=== PATIENT | male | born 1950 | race Caucasian/White ===

== ENCOUNTER 2017-08-05 02:46 | Inpatient (IN) | payer OTHER ==
[2017-08-05] VITALS (7 sets, daily range): BP systolic 115–144; BP diastolic 66–76; PULSE 78–118; RESP 17–20; TEMP 78.9–101.4; O2SAT 93–98
[~2017-08-05] VITALS: Ht 180.3 cm; Wt 106.3 kg
[~2017-08-05 02:46] MED LIST: ACET325 PO; AMIO200 PO; DUONI NEB; ECOT81TA2 PO; FLUC100T41 PO; HYDR20VI3 IV PUSH; LANSO30 NG; METF500 PO; METO10 PEG; METO50TA PO; RANI150UDC PO; SIME40S PO; WARF2.5T40 PO
[2017-08-05] MEDS ORDERED: SODIUM CHLOR 0.9% 1000 ML INJ 1,000 ML IV SCH ×2 (03:06→08:15)
[2017-08-05] MEDS ORDERED: ONDANSETRON HCL 4 MG/2 ML VIAL IVP ONE (03:15)
[2017-08-05] MEDS ORDERED: SODIUM CHLORIDE 0.9% FLUSH 10 ML FLUSH IV FLUSH PRN ×2 (03:15→06:45)
[2017-08-05] MEDS ORDERED: HYDROmorphone HCL PF 2 MG/ML VIAL IV PUSH ONE (03:15)
--- NOTE | 2017-08-05 03:43 | PD ---
HPI Chief Complaint: Abdominal Pain Time Seen by Provider: 02:54 Travel History International Travel<30 days: No Contact w/Intl Traveler<30days: No Traveled to known affect area: No History of Present Illness HPI This is a 67-year-old male who presents to the emergency department with abdominal discomfort that's been getting worse throughout the day, constant, severe, described as bandlike in his upper abdomen, associated with multiple episodes of vomiting. He denies any fevers but has had chills. He denies any diarrhea. He's never had pain like this before. He's never had abdominal surgery although he was intubated for a long period of time and had a g-tube in the setting of pneumonia. PFSH Past Medical History Atrial Fibrillation: Yes Heart Rhythm Problems: Yes (A FIB 2010) Cardiac Catheterization: Yes Cardiovascular Problems: Yes (ABNORMAL STRESS TEST) High Cholesterol: No Congestive Heart Failure: No Diabetes: No Diminished Hearing: No GERD: Yes (OCC) Genitourinary: No Musculoskeletal: No Neurologic: No Reproductive: No Respiratory: Yes Pneumonia: Yes Past Surgical History Cardiac Surgery: Yes (CARDIAC CATH, 2010) Thoracic Surgery: Yes (BIOPSY REMOVED NEAR LUNG 1979) Other Surgery: Yes (TRACHEOSTOMY/REVERSED) Social History Alcohol Use: Yes (OCC) Tobacco Use: No Substance Use: No Allergies-Medications (Allergen,Severity, Reaction): Coded Allergies: levofloxacin (Verified Allergy, Mild, Rash, 08/05/17) enoxaparin (Unverified Allergy, Unknown, 08/05/17) Heparin induced thrombocytopenia heparin (porcine) (Unverified Allergy, Unknown, 08/05/17) Heparin induced thrombocytopenia Reported Meds & Prescriptions Reported Meds & Active Scripts Active Review of Systems Except as stated in HPI: all other systems reviewed are Neg Physical Exam Narrative GENERAL: Unwell-appearing SKIN: Focused skin assessment warm and dry. HEAD: Atraumatic. Normocephalic. EYES: Pupils equal and round. No injection or drainage. ENT: Moist mucous membranes NECK: Trachea midline. CARDIOVASCULAR: Regular rate and rhythm. No murmur appreciated. RESPIRATORY: Clear to auscultation. Breath sounds equal bilaterally. GASTROINTESTINAL: Abdomen soft, diffusely tender to palpation with guarding MUSCULOSKELETAL: No obvious deformities. NEUROLOGICAL: Awake and alert. No obvious cranial nerve deficits. Moving all extremities. PSYCHIATRIC: Appropriate mood and affect; insight and judgment normal. Data Data Last Documented VS Vital Signs Date Time Temp Pulse Resp B/P (MAP) Pulse Ox O2 Delivery O2 Flow Rate FiO2 08/05/17 04:39 14 08/05/17 04:32 95 122/70 (87) 95 08/05/17 02:47 98.9 Orders Orders Complete Blood Count With Diff (08/05/17 03:06) Comprehensive Metabolic Panel (08/05/17 03:06) Lipase (08/05/17 03:06) Lactic Acid (08/05/17 03:06) Urinalysis - C+S If Indicated (08/05/17 03:06) Iv Access Insert/Monitor (08/05/17 03:06) Ecg Monitoring (08/05/17 03:06) Oximetry (08/05/17 03:06) Ondansetron Inj (Zofran Inj) (08/05/17 03:15) Sodium Chlor 0.9% 1000 Ml Inj (Ns 1000 M (08/05/17 03:06) Sodium Chloride 0.9% Flush (Ns Flush) (08/05/17 03:15) Hydromorphone Pf Inj (Dilaudid Pf Inj) (08/05/17 03:15) Diphenhydramine Inj (Benadryl Inj) (08/05/17 04:15) Us Abdomen Gallbladder (08/05/17 ) Piperacil-Tazo 3.375 Gm Premix (Zosyn 3. (08/05/17 04:45) Admit Order (Ed Use Only) (08/05/17 06:35) Labs Laboratory Tests Test 08/05/17 04:00 White Blood Count 11.9 TH/MM3 Red Blood Count 5.29 MIL/MM3 Hemoglobin 15.7 GM/DL Hematocrit 46.9 % Mean Corpuscular Volume 88.6 FL Mean Corpuscular Hemoglobin 29.7 PG Mean Corpuscular Hemoglobin Concent 33.5 % Red Cell Distribution Width 12.5 % Platelet Count 190 TH/MM3 Mean Platelet Volume 8.5 FL Neutrophils (%) (Auto) 82.3 % Lymphocytes (%) (Auto) 10.7 % Monocytes (%) (Auto) 5.7 % Eosinophils (%) (Auto) 0.9 % Basophils (%) (Auto) 0.4 % Neutrophils # (Auto) 9.8 TH/MM3 Lymphocytes # (Auto) 1.3 TH/MM3 Monocytes # (Auto) 0.7 TH/MM3 Eosinophils # (Auto) 0.1 TH/MM3 Basophils # (Auto) 0.0 TH/MM3 CBC Comment DIFF FINAL Differential Comment Blood Urea Nitrogen 15 MG/DL Creatinine 1.28 MG/DL Random Glucose 266 MG/DL Total Protein 7.0 GM/DL Albumin 3.7 GM/DL Calcium Level 8.7 MG/DL Alkaline Phosphatase 99 U/L Aspartate Amino Transf (AST/SGOT) 210 U/L Alanine Aminotransferase (ALT/SGPT) 110 U/L Total Bilirubin 2.9 MG/DL Sodium Level 137 MEQ/L Potassium Level 4.1 MEQ/L Chloride Level 101 MEQ/L Carbon Dioxide Level 28.4 MEQ/L Anion Gap 8 MEQ/L Estimat Glomerular Filtration Rate 56 ML/MIN Lactic Acid Level 2.6 mmol/L Lipase 66988 U/L [facility] Medical Decision Making Medical Screen Exam Complete: Yes Emergency Medical Condition: Yes Interpretation(s) Afebrile, no tachycardia, mild hypertension Mild leukocytosis Total bilirubin is 2.9 Transaminitis Lactic acid is 2.[address] [place] [address] Last 24 hours Impressions Gall Bladder Ultrasound 08/05/17 0000 Signed Impressions: Service Date/Time: Saturday, August 05, 2017 05:08 - CONCLUSION: The liver is slightly echogenic which maybe due to fatty infiltration and or hepatocellular dysfunction. Questionable gallstones not identified on the prior exam could be artifactual. Wil Guillory MD Differential Diagnosis Cholecystitis, cholelithiasis, choledocholithiasis, pancreatitis, gastritis, perforated ulcer Narrative Course This is a 67-year-old male who presents to the emergency department with abdominal discomfort and vomiting. He was placed on a monitor and an IV was established. Patient was given pain control, IV fluids and antiemetics. Labs demonstrate a mild leukocytosis, elevated total bilirubin and transaminitis as well as a lipase of 26,000 consistent with acute pancreatitis. I suspect he has choledocholithiasis given his total bilirubin elevation. He was given a dose of Zosyn empirically for concern for possible early cholangitis. Patient will be admitted for IV hydration and GI consultation. Physician Communication Physician Communication Discussed with Dr. Motley Diagnosis Primary Impression: Acute pancreatitis Qualified Codes: K85.10 - Biliary acute pancreatitis without necrosis or infection Admitting Information Admitting Physician Requests: it Zoey Rascon MD Aug 05, 2017 03:43
[2017-08-05 04:13] LABS: AUTOMATED NEUTROPHIL # 9.8 TH/MM3 (1.8-7.7); BASOPHIL % 0.4 % (0.0-2.0); EOSINOPHIL # 0.1 TH/MM3 (0-0.4); EOSINOPHIL % 0.9 % (0.0-4.0); HEMATOCRIT 46.9 % (39.0-51.0); HEMOGLOBIN 15.7 GM/DL (13.0-17.0); LYMPH % 10.7 % (9.0-44.0); LYMPHOCYTE # 1.3 TH/MM3 (1.0-4.8); MEAN CELL VOLUME 88.6 FL (80.0-100.0); MEAN CORPUSCULAR HEMOGLOBIN 29.7 PG (27.0-34.0); MEAN CORPUSCULAR HGB CONC 33.5 % (32.0-36.0); MEAN PLATELET VOLUME 8.5 FL (7.0-11.0); MONO % 5.7 % (0.0-8.0); MONOCYTE # 0.7 TH/MM3 (0-0.9); NEUT % 82.3 % (16.0-70.0); PLATELET COUNT 190 TH/MM3 (150-450); RED BLOOD COUNT 5.29 MIL/MM3 (4.50-5.90); RED CELL DISTRIBUTION WIDTH 12.5 % (11.6-17.2); WHITE BLOOD COUNT 11.9 TH/MM3 (4.0-11.0)
[2017-08-05] MEDS ORDERED: diphenhydrAMINE HCL 50 MG/ML VIAL IV PUSH ONE (04:15)
[2017-08-05 04:42] LABS: ALBUMIN 3.7 GM/DL (3.4-5.0); ALKALINE PHOSPHATASE 99 U/L (45-117); ALT (GPT) 110 U/L (12-78); AST (GOT) 210 U/L (15-37); BICARBONATE 28.4 MEQ/L (21.0-32.0); BLOOD UREA NITROGEN 15 MG/DL (7-18); CALCIUM 8.7 MG/DL (8.5-10.1); CHLORIDE 101 MEQ/L (98-107); CREATININE 1.28 MG/DL (0.60-1.30); GLOMERULAR FILTRATION RATE 56 ML/MIN (>89); GLUCOSE,RANDOM 266 MG/DL (74-106); SODIUM (NA) 137 MEQ/L (136-145); TOTAL BILIRUBIN ADULT 2.9 MG/DL (0.2-1.0)
[2017-08-05] MEDS ORDERED: PIPERACIL-TAZO 3.375 GM PREMIX 50 ML IV ONE (04:45)
[2017-08-05 05:21] LABS: LIPASE 26244 U/L (73-393)
--- NOTE | 2017-08-05 06:19 | RADRPT ---
EXAM DATE/TIME: 08/05/2017 05:08 [place] COMPARISON: US ABDOMEN - COMPLETE, October 24, 2015, 8:42. INDICATIONS : Right upper quadrant pain. MEDICAL HISTORY : GERD. Sepsis. Diabetes. Cardiac disease. Afib. Dyspnea. Acute respiratory failure. SURGICAL HISTORY : Cardiac catheterization. Vent. Biopsy near lung. Tracheostomy. PEG tube placement. ENCOUNTER: Subsequent ACUITY: 1 day PAIN SCORE: 3/10 LOCATION: Right upper quadrant MEASUREMENTS: LIVER: 17.5 cm length COMMON DUCT: 7 mm RIGHT KIDNEY: 11.8 x 5.7 x 6.1 cm FINDINGS: The liver is slightly echogenic which maybe due to fatty infiltration and or hepatocellular dysfuncti on. Possible echogenic areas are present in the gallbladder, however questionably artifactually creat ed related bowel. CONCLUSION: The liver is slightly echogenic which maybe due to fatty infiltration and or hepatoce llular dysfunction. Questionable gallstones not identified on the prior exam could be artifactual. Wil Guillory MD on August 05, 2017 at 6:16 Board Certified Radiologist. This report was verified electronically.
[2017-08-05] MEDS ORDERED: LACTULOSE SYRUP 20 GM/30 ML CUP PO PRN (06:45)
[2017-08-05] MEDS ORDERED: HYDROmorphone HCL PF 2 MG/ML VIAL IV PUSH PRN ×3 (06:45→08:30)
[2017-08-05] MEDS ORDERED: NALOXONE HCL 0.4 MG/ML AMP IV PUSH PRN (06:45)
[2017-08-05] MEDS ORDERED: MAGNESIUM HYDROXIDE SUSP 30 ML CUP PO PRN (06:45)
[2017-08-05] MEDS ORDERED: BISACODYL 10 MG SUPP RECTAL PRN (06:45)
[2017-08-05] MEDS ORDERED: SENNOSIDES 8.6 MG TAB PO PRN (06:45)
[2017-08-05] MEDS: SODIUM CHLOR 0.9% 1000 ML INJ 1,000 ML IV SCH ×2 (06:49→09:32)
[2017-08-05] MEDS ORDERED: METO25TA3 PO (06:56)
[2017-08-05] MEDS ORDERED: XARE10TA PO (06:56)
[2017-08-05] MEDS ORDERED: HYDROmorphone HCL PF 4 MG/ML VIAL IV PUSH PRN (08:15)
[2017-08-05 08:28] LABS: PROTHROMBIN TIME - PATIENT 10.6 SEC (9.8-11.6)
[2017-08-05] MEDS: SODIUM CHLORIDE 0.9% FLUSH 10 ML FLUSH IV FLUSH SCH ×2 (09:00→20:26)
[2017-08-05] MEDS: DOCUSATE SODIUM 50 MG/SENNA 8.6 MG TAB PO SCH ×2 (09:31→20:26)
[2017-08-05] MEDS: METOPROLOL TARTRATE 25 MG TAB PO SCH ×2 (09:31→20:25)
[2017-08-05] MEDS: FAMOTIDINE 20 MG/2 ML VIAL IV PUSH SCH ×2 (09:32→20:25)
--- NOTE | 2017-08-05 09:33 | HHI.HP ---
HPI Service [facility] Primary Care Physician Tone Felder M.D. Admission Diagnosis acute pancreatitis Diagnoses: Chief Complaint: Abdominal pain Travel History International Travel<30 Days: No Contact w/Intl Traveler <30 Da: No Traveled to Known Affected Are: No History of Present Illness This is a 67-year-old male with a history of atrial fibrillation on Xarelto and GERD. He presents to the emergency department complaining of acute onset of moderate to severe constant upper abdominal discomfort like a bad cramp for 24 hours associated with nausea, vomiting and chills. No fever, UTI symptoms, constipation and diarrhea. He occasionally drinks alcohol but had some alcoholic drinks 24 hours prior to onset of symptoms. Lipase of 26,000, total bilirubin of 2.9, AST 2010 and ALT 110. Gallbladder sonogram with questionable gallstones. At this time, he does not have any complaints he is requesting water. All other systems reviewed negative Review of Systems Except as stated in HPI: all other systems reviewed are Neg Past Family Social History Past Medical History As previously mentioned Past Surgical History Negative cardiac catheterization, lung biopsy, tracheostomy with subsequent removal Reported Medications Metoprolol Tartrate 25 Mg Tab 25 Mg PO BID Xarelto (Rivaroxaban) 10 Mg Tab 10 Mg PO DAILY (ran out for the past 5 days) Third medication he cannot recall Allergies: Coded Allergies: levofloxacin (Verified Allergy, Mild, Rash, 08/05/17) enoxaparin (Unverified Allergy, Unknown, 08/05/17) Heparin induced thrombocytopenia heparin (porcine) (Unverified Allergy, Unknown, 08/05/17) Heparin induced thrombocytopenia Family History No history of pancreatic cancer Social History Occasional alcohol use but does not smoke or use illicit drugs Physical Exam Vital Signs Vital Signs Date Time Temp Pulse Resp B/P (MAP) Pulse Ox O2 Delivery O2 Flow Rate FiO2 08/05/17 08:02 08/05/17 07:15 96 Room Air 08/05/17 04:39 14 08/05/17 04:32 95 18 122/70 (87) 95 08/05/17 02:47 98.9 78 18 144/66 (92) 98 Physical Exam GENERAL: This is a well-nourished, well-developed patient, in no apparent distress. SKIN: No rashes, ecchymoses or lesions. Cool and dry. HEAD: Atraumatic. Normocephalic. No temporal or scalp tenderness. EYES: Pupils equal round and reactive. Extraocular motions intact. No injection or drainage. ENT: Nose without bleeding, purulent drainage or septal hematoma. Throat without erythema, tonsillar hypertrophy or exudate. Uvula midline. Airway patent. NECK: Trachea midline. No JVD or lymphadenopathy. Supple, nontender, no meningeal signs. CARDIOVASCULAR: Irregularly irregular without murmurs, gallops, or rubs. RESPIRATORY: Clear to auscultation. Breath sounds equal bilaterally. No wheezes , rales, or rhonchi. GASTROINTESTINAL: Abdomen soft, tender upper abdominal areas, nondistended. No guarding. MUSCULOSKELETAL: Extremities without clubbing, cyanosis, or edema. No joint tenderness, effusion, or edema noted. No calf tenderness. Negative Homans sign bilaterally. NEUROLOGICAL: Awake and alert. Cranial nerves II through XII intact. Motor and sensory grossly within normal limits. Five out of 5 muscle strength in all muscle groups. Normal speech. Laboratory Laboratory Tests Test 08/05/17 04:00 08/05/17 08:00 White Blood Count 11.9 Red Blood Count 5.29 Hemoglobin 15.7 Hematocrit 46.9 Mean Corpuscular Volume 88.6 Mean Corpuscular Hemoglobin 29.7 Mean Corpuscular Hemoglobin Concent 33.5 Red Cell Distribution Width 12.5 Platelet Count 190 Mean Platelet Volume 8.5 Neutrophils (%) (Auto) 82.3 Lymphocytes (%) (Auto) 10.7 Monocytes (%) (Auto) 5.7 Eosinophils (%) (Auto) 0.9 Basophils (%) (Auto) 0.4 Neutrophils # (Auto) 9.8 Lymphocytes # (Auto) 1.3 Monocytes # (Auto) 0.7 Eosinophils # (Auto) 0.1 Basophils # (Auto) 0.0 CBC Comment DIFF FINAL Differential Comment Blood Urea Nitrogen 15 Creatinine 1.28 Random Glucose 266 Total Protein 7.0 Albumin 3.7 Calcium Level 8.7 Alkaline Phosphatase 99 Aspartate Amino Transf (AST/SGOT) 210 Alanine Aminotransferase (ALT/SGPT) 110 Total Bilirubin 2.9 Sodium Level 137 Potassium Level 4.1 Chloride Level 101 Carbon Dioxide Level 28.4 Anion Gap 8 Estimat Glomerular Filtration Rate 56 Lactic Acid Level 2.6 Lipase 97587 Prothrombin Time 10.6 Prothromb Time International Ratio 1.0 Activated Partial Thromboplast Time 22.8 Result Diagram: 08/05/170 08/05/17 0400 Imaging Last Impressions Gall Bladder Ultrasound 08/05/17 0000 Signed Impressions: Service Date/Time: Saturday, August 05, 2017 05:08 - CONCLUSION: The liver is slightly echogenic which maybe due to fatty infiltration and or hepatocellular dysfunction. Questionable gallstones not identified on the prior exam could be artifactual. MD Carlota Zee VTE Risk Assessment Caprini VTE Risk Assessment: Mod/High Risk (score >= 2) Caprini Risk Assessment Model Point Value = 1 Point Value = 2 Point Value = 3 Point Value = 5 Age 41-60 Minor surgery BMI > 25 kg/m2 Swollen legs Varicose veins or History of unexplained or recurrent spontaneous Oral contraceptives or hormone replacement Sepsis (< 1 month) Serious lung disease, including pneumonia (< 1 month) Abnormal pulmonary function Acute myocardial infarction Congestive heart failure (< 1 month) History of inflammatory bowel disease Medical patient at bed rest Age 61-74 Arthroscopic surgery Major open surgery (> 45 min) Laparoscopic surgery (> 45 min) Malignancy Confined to bed (> 72 hours) Immobilizing plaster cast Central venous access Age >= 75 History of VTE Family history of VTE Factor V Leiden Prothrombin [id number] Lupus anticoagulant Anticardiolipin antibodies Elevated serum homocysteine Heparin-induced thrombocytopenia Other congenital or acquired thrombophilia Stroke (< 1 month) Elective arthroplasty Hip, pelvis, or leg fracture Acute spinal cord injury (< 1 month) Prophylaxis Regimen Total Risk Factor Score Risk Level Prophylaxis Regimen 0-1 Low Early ambulation 2 Moderate Order ONE of the following: *Sequential Compression Device (SCD) *Heparin 5000 units SQ BID 3-4 Higher Order ONE of the following medications: *Heparin 5000 units SQ TID *Enoxaparin/Lovenox 40 mg SQ daily (WT < 150 kg, CrCl > 30 mL/min) *Enoxaparin/Lovenox 30 mg SQ daily (WT < 150 kg, CrCl > 10-29 mL/min) *Enoxaparin/Lovenox 30 mg SQ BID (WT < 150 kg, CrCl > 30 mL/min) AND/OR *Sequential Compression Device (SCD) 5 or more Highest Order ONE of the following medications: *Heparin 5000 units SQ TID (Preferred with Epidurals) *Enoxaparin/Lovenox 40 mg SQ daily (WT < 150 kg, CrCl > 30 mL/min) *Enoxaparin/Lovenox 30 mg SQ daily (WT < 150 kg, CrCl > 10-29 mL/min) *Enoxaparin/Lovenox 30 mg SQ BID (WT < 150 kg, CrCl > 30 mL/min) AND *Sequential Compression Device (SCD) Assessment and Plan Problem List: (1) Acute pancreatitis ICD Code: K85.90 - Acute pancreatitis without necrosis or infection, unspecified Status: Acute Assessment and Plan This is a 67-year-old male who presents to the emergency department complaining of acute onset of moderate to severe constant upper abdominal discomfort like a bad cramp for 24 hours associated with nausea, vomiting and chills. No fever, UTI symptoms, constipation and diarrhea. He occasionally drinks alcohol but had some alcoholic drinks 24 hours prior to onset of symptoms. Lipase of 26,000 , total bilirubin of 2.9, AST 2010 and ALT 110. Gallbladder sonogram with questionable gallstones. Acute pancreatitis likely alcoholic suspect choledocholithiasis. Keep nothing by mouth with ice chips. Pain management with oxycodone and IV Dilaudid counseled regarding narcotics. He'll likely need MRCP but will defer to GI Abnormal liver function tests with echogenic liver which may be due to fatty infiltration and hepatocellular disease. Avoid nephrotoxins. Check hepatitis profile. Monitor. Leukocytosis with elevated lactic acid likely secondary to pancreatitis. Patient already on intravenous Zosyn. Check urinalysis. Monitor Chronic medical conditions of atrial fibrillation on Xarelto and GERD. Continue outpatient medications as appropriate DVT prophylaxis with SCD and Xarelto if okay with GI Discussed Condition With Patient and nursing staff Problem Qualifiers (1) Acute pancreatitis: Qualified Codes: K85.10 - Biliary acute pancreatitis without necrosis or infection Carlos Herrera MD Aug 05, 2017 09:33
[2017-08-05] MEDS ORDERED: PIPERACIL-TAZO 3.375 GM PREMIX 50 ML IV SCH (12:00)
[2017-08-05] MEDS: DEXTROSE 5%-LACTATED RING INJ 1,000 ML IV SCH ×2 (12:58→20:23)
--- NOTE | 2017-08-05 13:26 | MB ---
cc: ELIZABETH DONATO M.D., HUMAYUN A. M.D. PECK, BENJAMIN D. DATE OF CONSULTATION: 08/05/[address] Elizabeth Donato. HISTORY OF PRESENT ILLNESS The patient is a 67-year-old male I was asked to see for further evaluation and management of pancreatitis. After eating lunch yesterday he developed some mild epigastric discomfort and after dinner the discomfort increased in severity with radiation to the back with associated nausea and vomiting of food and liquid but no blood. No fever or chills. No bowel irregularities. No episodes similar to this. MEDICAL HISTORY Atrial fibrillation, hypertension. PAST SURGICAL HISTORY Tracheostomy and gastrostomy tube October of 2015, at which time he was here in the hospital for 3 months with a severe pneumonia. MEDICATIONS ON ADMISSION 1. Metoprolol 25 mg b.i.d. 2. Xarelto 10 mg daily, though he has not been taking it for the past 5 days as he has run out. 3. He takes Gaviscon occasionally for heartburn symptoms with fair control of symptoms. FAMILY HISTORY Heart disease. No pancreatic disease or GI diseases in the family. SOCIAL HISTORY Tobacco use: None. Alcohol use: About once per week or every other week. REVIEW OF SYSTEMS No recent headaches. No history of seizures or strokes. No vision difficulties. No dysphagia or odynophagia. Mild heartburn symptoms treated with Gaviscon (we discussed the option of using Zantac or Pepcid for prolonged symptom relief). No recent chest pains or breathing difficulties. No urinary symptoms. No rashes or joint pains. No unexplained weight loss. PHYSICAL EXAMINATION VITAL SIGNS: His weight is 100 kilograms. His temperature is 98.3, pulse 109, respiratory rate 18, blood pressure 119/73. Oxygen saturation 94% on room air. GENERAL: He is alert. He is oriented x3. HEENT: He is anicteric. Extraocular motions are intact. I appreciate no submandibular, cervical, supraclavicular, axillary or epitrochlear adenopathy. LUNGS: Clear to auscultation. HEART: Irregular rhythm. No gross murmur or gallop. ABDOMEN: Good bowel sounds with no appreciable bruit. The abdomen is soft and there is mild to moderate epigastric to right upper quadrant tenderness. No masses or hepatosplenomegaly noted. No pedal edema, Dupuytren's contractures or palmar erythema. LABORATORY DATA ON ADMISSION This morning at 4 o'clock white count 11.9, hemoglobin 15.7, platelets 190, INR 1.0. Sodium 137, potassium 4.1, BUN 15, creatinine 1.28, glucose 266, bilirubin 2.9, AST 210, ALT 110, alkaline phosphatase 99, lipase 26,244, albumin 3.7. IMAGING STUDIES Ultrasound performed this morning (I reviewed this with the radiologist) reveals probable sludge and/or small stones in the gallbladder. The bile duct measures 7 mm which is the same diameter as noted on the CT scan of the abdomen from October of 2015. Even in October of [address] scan suggested sludge in the gallbladder. There was a slightly echogenic appearance to the liver suggesting fatty liver or medical liver disease. IMPRESSION 1. Acute pancreatitis. My suspicion is this is related to gallstone pancreatitis. We expect to see a significant drop in the lipase with the next reading. He has been receiving Dilaudid. His last dose was given over 5 hours ago and his symptoms are not as bad now as they were yesterday, suggesting he is already improving. He had been receiving normal saline at 200 cc/hour. I suggest changing this to lactated Ringer's as studies have shown this is a more appropriate fluid for pancreatitis. Also, we will change Dilaudid to Demerol as Demerol is the only narcotic that does not cause spasm of the sphincter of Oddi and is the recommended narcotic for patients with pancreatitis. Piperacillin can be stopped as there is no evidence of infection. We discussed the need for cholecystectomy once this process resolves. This can be coordinated as an outpatient, when convenient. The patient's last colonoscopy was performed about a year ago. I will follow along closely. MD JAQUELIN Orr/KELLY /12:36 PM /12:49 PM
[2017-08-05] MEDS: RIVAROXABAN 10 MG TAB PO SCH (14:00)
[2017-08-05] MEDS: MEPERIDINE HCL 50 MG/ML VIAL IV PUSH PRN ×2 (15:05→18:59)
[2017-08-05] MEDS: ACETAMINOPHEN 325 MG TAB PO PRN (20:22)
[2017-08-06] VITALS: BP 102/61; PULSE 86; RESP 20; TEMP 99; O2SAT 90
[2017-08-06] MEDS: DEXTROSE 5%-LACTATED RING INJ 1,000 ML IV SCH ×4 (03:14→22:57)
[2017-08-06] MEDS: ONDANSETRON HCL 4 MG/2 ML VIAL IVP PRN ×3 (03:21→20:04)
[2017-08-06] MEDS: MEPERIDINE HCL 50 MG/ML VIAL IV PUSH PRN ×3 (03:21→20:22)
[2017-08-06 05:06] VITALS: O2SAT 96
[2017-08-06 05:14] LABS: BASOPHIL % 0.5 % (0.0-2.0); EOSINOPHIL # 0.1 TH/MM3 (0-0.4); EOSINOPHIL % 0.7 % (0.0-4.0); HEMATOCRIT 41.9 % (39.0-51.0); HEMOGLOBIN 14.1 GM/DL (13.0-17.0); LYMPH % 4.7 % (9.0-44.0); LYMPHOCYTE # 0.4 TH/MM3 (1.0-4.8); MEAN CELL VOLUME 89.8 FL (80.0-100.0); MEAN CORPUSCULAR HEMOGLOBIN 30.2 PG (27.0-34.0); MEAN CORPUSCULAR HGB CONC 33.7 % (32.0-36.0); MEAN PLATELET VOLUME 8.4 FL (7.0-11.0); MONO % 6.3 % (0.0-8.0); MONOCYTE # 0.5 TH/MM3 (0-0.9); NEUT % 87.8 % (16.0-70.0); PLATELET COUNT 167 TH/MM3 (150-450); RED BLOOD COUNT 4.67 MIL/MM3 (4.50-5.90); RED CELL DISTRIBUTION WIDTH 12.9 % (11.6-17.2); WHITE BLOOD COUNT 7.9 TH/MM3 (4.0-11.0)
[2017-08-06 05:23] LABS: AST (GOT) 91 U/L (15-37); BICARBONATE 26.4 MEQ/L (21.0-32.0); BLOOD UREA NITROGEN 11 MG/DL (7-18); CALCIUM 8.1 MG/DL (8.5-10.1); CHLORIDE 104 MEQ/L (98-107); CREATININE 1.25 MG/DL (0.60-1.30); GLUCOSE,RANDOM 291 MG/DL (74-106); SODIUM (NA) 138 MEQ/L (136-145)
[2017-08-06 05:27] LABS: ALKALINE PHOSPHATASE 74 U/L (45-117); ALT (GPT) 137 U/L (12-78); LIPASE 5458 U/L (73-393); TOTAL PROTEIN 6.7 GM/DL (6.4-8.2)
[2017-08-06 08:00] VITALS: BP 120/66; PULSE 82; RESP 17; TEMP 96.8; O2SAT 94
[2017-08-06] MEDS: SODIUM CHLORIDE 0.9% FLUSH 10 ML FLUSH IV FLUSH SCH ×2 (08:53→20:25)
[2017-08-06] MEDS: DOCUSATE SODIUM 50 MG/SENNA 8.6 MG TAB PO SCH ×2 (09:00→20:25)
[2017-08-06] MEDS: RIVAROXABAN 10 MG TAB PO SCH (09:00)
[2017-08-06] MEDS: FAMOTIDINE 20 MG/2 ML VIAL IV PUSH SCH ×2 (09:00→20:21)
[2017-08-06] MEDS: METOPROLOL TARTRATE 25 MG TAB PO SCH ×2 (09:00→20:21)
--- NOTE | 2017-08-06 10:39 | HHI.GIFU ---
GI Follow-up Note Consult Follow-up Subjective: Patient laying in bed comfortably, no new complaints. Less pain, he's requiring demerol less frequently. He had a good bowel movement and has been passing ani-colored urine. Objective: PHYSICAL EXAMINATION: Vitals signs stable No fever HEENT:EOMI ABDOMEN: Soft, nondistended, good bowel sounds; less tender, but the tenderness is more diffuse. SUPERVISOR RIVETING: alert and oriented times three. Available Data (labs, X- Rays, Procedues) : Labs reviewed; improving lipase and liver enzymes. ASSESSMENT/PLAN: Acute (likely gallstone) pancreatitis; improving. We'll advance to a clear liquid diet. He should increase ambulation. Will follow closely. It was a pleasure seeing Loy Felder Jr. Entered by: Zay Collazo MD Aug 06, 2017 10:38
[2017-08-06 10:54] LABS: HEPATITIS A AB IGM NEGATIVE (NEGATIVE); HEPATITIS B CORE AB IGM NEGATIVE (NEGATIVE); HEPATITIS B SURFACE ANTIGEN NEGATIVE (NEGATIVE); HEPATITIS C AB IgG NEGATIVE (NEGATIVE)
[2017-08-06 12:00] VITALS: BP 123/68; PULSE 84; RESP 17; TEMP 98.2; O2SAT 94
[2017-08-06 16:00] VITALS: BP 127/73; PULSE 88; RESP 18; TEMP 96.5; O2SAT 95
[2017-08-06 20:00] VITALS: PULSE 83; RESP 20; TEMP 100.6; O2SAT 90
[2017-08-06] MEDS: ACETAMINOPHEN 325 MG TAB PO PRN (20:21)
--- NOTE | 2017-08-06 22:40 | HHI.PR ---
Subjective Remarks Patient seen today around 11:30 AM. He reports that abdominal pain is slightly better today. Nausea slightly better today. Objective Vital Signs Date Time Temp Pulse Resp B/P (MAP) Pulse Ox O2 Delivery O2 Flow Rate FiO2 08/06/17 20:00 100.6 83 20 90 08/06/17 16:00 96.5 88 18 127/73 (91) 95 08/06/17 12:00 98.2 84 17 123/68 (86) 94 08/06/17 08:00 96.8 82 17 120/66 (84) 94 08/06/17 05:06 96 08/06/17 00:00 99.0 86 20 102/61 (75) 90 I/O 08/05/17 08/05/17 08/05/17 08/06/17 08/06/17 08/06/17 07:00 15:00 23:00 07:00 15:00 23:00 Intake Total 1050 ml 1000 ml 1000 ml 450 ml 1240 ml Output Total 700 ml 550 ml 650 ml Balance 1050 ml 300 ml 450 ml 450 ml 590 ml Intake Oral 0 ml 0 ml 240 ml IV Total 1050 ml 1000 ml 1000 ml 450 ml 1000 ml Output Urine Total 700 ml 550 ml 650 ml # Bowel Movements 0 1 0 Result Diagram: 08/06/1742108/06/17421 Objective Remarks GENERAL: PATIENT SITTING UP IN BED. aPPEARS COMFORTABLE. SKIN: Warm and dry. HEAD: Normocephalic. EYES: No scleral icterus. No injection or drainage. NECK: Supple, trachea midline. No JVD. CARDIOVASCULAR: Regular rate and rhythm without murmurs, gallops, or rubs. RESPIRATORY: Breath sounds equal bilaterally. No accessory muscle use. GASTROINTESTINAL: Abdomen soft, mild tenderness in the epigastrium. No rebound or guarding. MUSCULOSKELETAL: No cyanosis, or edema. BACK: Nontender without obvious deformity. No CVA tenderness. A/P Assessment and Plan This is a 67-year-old male who presents to the emergency department complaining of acute onset of moderate to severe constant upper abdominal discomfort like a bad cramp for 24 hours associated with nausea, vomiting and chills. No fever, UTI symptoms, constipation and diarrhea. He occasionally drinks alcohol but had some alcoholic drinks 24 hours prior to onset of symptoms. Lipase of 26,000 , total bilirubin of 2.9, AST 2010 and ALT 110. Gallbladder sonogram with questionable gallstones. //Acute pancreatitis likely alcoholic suspect choledocholithiasis. Keep nothing by mouth with ice chips. Pain management with oxycodone and IV Dilaudid counseled regarding narcotics. He'll likely need MRCP but will defer to GI -Appreciate GI assistance. Continue IV fluids. //Hyperglycemia. -Possibly secondary to glucose and IV fluids. We'll start insulin sliding scale. Check UA for ketones. A1C. //Abnormal liver function tests with echogenic liver which may be due to fatty infiltration and hepatocellular disease. Avoid nephrotoxins. Check hepatitis profile. Monitor. -LFTs relatively stable. Profile pending urine //Leukocytosis with elevated lactic acid likely secondary to pancreatitis. Patient already on intravenous Zosyn. Check urinalysis. Monitor //Chronic medical conditions of atrial fibrillation on Xarelto and GERD. Continue outpatient medications as appropriate DVT prophylaxis with SCD and Xarelto if okay with GI Discharge Planning CONTINUE TREATMENT FOR ACUTE PANCREATITIS. Luigi Schuster MD Aug 06, 2017 22:40
[2017-08-06] MEDS ORDERED: THIAMINE HCL 100 MG TAB PO ONE (22:45)
[2017-08-07] VITALS (9 sets, daily range): BP systolic 121–131; BP diastolic 57–79; PULSE 75–118; RESP 18–20; TEMP 98.7–100.3; O2SAT 90–96
[2017-08-07] MEDS ORDERED: guaiFENesin/DEXTROMETHORPHAN 200 MG/20 MG/10 ML CUP PO PRN (04:00)
[2017-08-07 04:03] LABS: BILIRUBIN, URINE NEG (NEG); BLOOD, URINE NEG (NEG); GLUCOSE,URINE 1000 mg/dL (NEG); KETONE, URINE NEG (NEG); NITRITE,URINE NEG (NEG); PH, URINE 6.5 (5.0-8.5); SQUAMOUS EPITHELIAL CELL URINE <1 /hpf (0-5); URINE COLOR YELLOW (YELLW/STRAW); URINE LEUKOCYTE ESTERASE NEG (NEG)
[2017-08-07] MEDS: ONDANSETRON HCL 4 MG/2 ML VIAL IVP PRN ×3 (04:09→21:37)
--- NOTE | 2017-08-07 04:17 | RADRPT ---
EXAM DATE/TIME: 08/07/2017 04:07 [place] COMPARISON: CHEST SINGLE AP, October 29, 2015, 3:15. INDICATIONS : Short of breath. MEDICAL HISTORY : None. SURGICAL HISTORY : None. ENCOUNTER: Initial ACUITY: 1 day PAIN SCORE: 0/10 LOCATION: Bilateral chest FINDINGS: There is mild perivascular haziness probably pulmonary edema. Focal consolidation is not seen. Heart and mediastinum are unremarkable for technique. CONCLUSION: Possible mild pulmonary edema. Wil Guillory MD on August 07, 2017 at 4:14 Board Certified Radiologist. This report was verified electronically.
[2017-08-07] MEDS: MEPERIDINE HCL 50 MG/ML VIAL IV PUSH PRN ×3 (04:32→21:58)
[2017-08-07] MEDS: DEXTROSE 5%-LACTATED RING INJ 1,000 ML IV SCH (04:33)
[2017-08-07] MEDS ORDERED: FUROSEMIDE 40 MG/4 ML VIAL IV PUSH ONE (05:15)
[2017-08-07] MEDS: INSULIN ASPART SUPPLEMENTAL SCALE SQ SCH ×4 (08:00→20:35)
--- NOTE | 2017-08-07 08:17 | HHI.GIFU ---
GI Follow-up Note Consult Follow-up Subjective: Patient laying in bed comfortably, pain better. no fever or chills. Has sob, coughing spell. received Lasix with good urine output. Objective: PHYSICAL EXAMINATION: Vitals signs stable No fever HEENT: Pupils round and reactive to light; normocephalic; atraumatic; no jaundice. Throat is clear. NECK: Neck is supple, no JVD, no lymphadenopathy. CHEST: Chest is clear to auscultation and percussion., crackles at the base. b/ l CARDIAC: Regular rate and rhythm with no murmur gallop or rubs. ABDOMEN: Soft, nondistended, mild tender; no hepatosplenomegaly; bowel sounds are present in all four quadrants. EXTREMITIES: No clubbing, cyanosis, or edema. SKIN: Normal; no rash; no jaundice. DIESEL ENGINE MECHANIC: No focal deficits; alert and oriented times three. Available Data (labs, X- Rays, Procedures) : Reviewed ASSESSMENT/PLAN: 1. Acute gallstone pancreatitis - clinically improving 2. Mild sob with coughing likely due to pulm edema. 3. Elevated LFTs - down trending. PLAN: 1. Will advance diet to soft as tolerated 2. Ok to continue gentle diuresis. 3. Monitor LFts 4. Anticipate one more day in hospital. 5. Goal of discharge, pain control, downtrend or normal LFts, and tolerating diet. It was a pleasure seeing Loy Felder Jr. Thank you for this consult. Entered by: Eleuterio Cheng MD Aug 07, 2017 08:17
[2017-08-07 09:10] LABS: AUTOMATED NEUTROPHIL # 5.8 TH/MM3 (1.8-7.7); BASOPHIL % 0.6 % (0.0-2.0); EOSINOPHIL # 0.4 TH/MM3 (0-0.4); EOSINOPHIL % 4.6 % (0.0-4.0); LYMPHOCYTE # 0.8 TH/MM3 (1.0-4.8); MEAN CELL VOLUME 88.3 FL (80.0-100.0); MEAN CORPUSCULAR HEMOGLOBIN 30.8 PG (27.0-34.0); MEAN CORPUSCULAR HGB CONC 34.8 % (32.0-36.0); MEAN PLATELET VOLUME 8.6 FL (7.0-11.0); MONOCYTE # 0.7 TH/MM3 (0-0.9); NEUT % 75.8 % (16.0-70.0); PLATELET COUNT 169 TH/MM3 (150-450); RED BLOOD COUNT 4.53 MIL/MM3 (4.50-5.90); RED CELL DISTRIBUTION WIDTH 12.8 % (11.6-17.2); WHITE BLOOD COUNT 7.7 TH/MM3 (4.0-11.0)
[2017-08-07 09:24] LABS: BICARBONATE 25.6 MEQ/L (21.0-32.0); CALCIUM 8.2 MG/DL (8.5-10.1); CREATININE 1.08 MG/DL (0.60-1.30)
[2017-08-07] MEDS: METOPROLOL TARTRATE 25 MG TAB PO SCH ×2 (11:11→20:34)
[2017-08-07] MEDS: RIVAROXABAN 10 MG TAB PO SCH (11:11)
[2017-08-07] MEDS: SODIUM CHLORIDE 0.9% FLUSH 10 ML FLUSH IV FLUSH SCH ×2 (11:11→20:34)
[2017-08-07] MEDS: DOCUSATE SODIUM 50 MG/SENNA 8.6 MG TAB PO SCH ×2 (11:11→20:34)
[2017-08-07] MEDS: FAMOTIDINE 20 MG/2 ML VIAL IV PUSH SCH ×2 (11:11→20:34)
[2017-08-07] MEDS: ACETAMINOPHEN 325 MG TAB PO PRN (14:05)
[2017-08-07 16:43] LABS: HEMOGLOBIN A1C 8.4 % (4.3-6.0)
--- NOTE | 2017-08-07 17:02 | HHI.PR ---
Subjective Remarks Patient having a cough today, abdominal pain 5 out of 10 no nausea or vomiting positive bowel movement Objective Vitals Vital Signs Date Time Temp Pulse Resp B/P (MAP) Pulse Ox O2 Delivery O2 Flow Rate FiO2 08/07/17 16:00 98.8 96 20 121/65 (83) 92 08/07/17 15:46 Nasal Cannula 4.00 08/07/17 15:36 18 08/07/17 15:36 18 08/07/17 12:00 100.3 93 18 131/64 (86) 94 08/07/17 10:00 95 08/07/17 08:00 99.2 118 20 130/79 (96) 95 08/07/17 06:23 92 08/07/17 05:35 Nasal Cannula 4.00 08/07/17 03:55 96 Simple Mask 5.00 08/07/17 03:48 20 96 08/07/17 00:00 98.7 75 20 126/75 (92) 90 08/06/17 20:00 100.6 83 20 90 I/O 08/06/17 08/06/17 08/06/17 08/07/17 08/07/17 08/07/17 07:00 15:00 23:00 07:00 15:00 23:00 Intake Total 1000 ml 450 ml 2240 ml 240 ml Output Total 550 ml 650 ml 350 ml Balance 450 ml 450 ml 1590 ml -110 ml Intake Oral 0 ml 240 ml 240 ml IV Total 1000 ml 450 ml 2000 ml Output Urine Total 550 ml 650 ml 350 ml # Voids 3 # Bowel Movements 1 0 Result Diagram: 08/07/1718 08/07/1718 Objective Remarks GENERAL: This is a well-nourished, well-developed patient, in no apparent distress. SKIN: No rashes, warm and dry HEAD: Atraumatic. Normocephalic. EYES: Pupils equal round and reactive. Extraocular motions intact. No scleral icterus. ENT: Nose without bleeding, or drainage, Airway patent. NECK: Trachea midline. Supple CARDIOVASCULAR: Regular rate and rhythm without murmurs, gallops, or rubs. RESPIRATORY: Increased breath sounds bibasilar GASTROINTESTINAL: Abdomen soft, non-tender, nondistended. Positive bowel sounds MUSCULOSKELETAL: Extremities without clubbing, cyanosis, or edema. Pedal pulses appreciated NEUROLOGICAL: Awake and alert. Moves all extremity. Normal speech.no focal neurological deficit A/P Problem List: (1) Acute pancreatitis ICD Code: K85.90 - Acute pancreatitis without necrosis or infection, unspecified Status: Acute Assessment and Plan This is a 67-year-old male who presents to the emergency department complaining of acute onset of moderate to severe constant upper abdominal discomfort like a bad cramp for 24 hours associated with nausea, vomiting and chills. No fever, UTI symptoms, constipation and diarrhea. He occasionally drinks alcohol but had some alcoholic drinks 24 hours prior to onset of symptoms. Lipase of 26,000 , total bilirubin of 2.9, AST 2010 and ALT 110. Gallbladder sonogram with questionable gallstones. 08/07: Monitor LFT, patient had lung edema overnight, he was given Lasix and stopped the fluid, check 2-D echo //Acute pancreatitis likely alcoholic suspect choledocholithiasis. Keep nothing by mouth with ice chips. Pain management with oxycodone and IV Dilaudid counseled regarding narcotics. He'll likely need MRCP but will defer to GI -Appreciate GI assistance. Continue IV fluids. //Hyperglycemia. -Possibly secondary to glucose and IV fluids. We'll start insulin sliding scale. Check A1c //Transaminitis with echogenic liver which may be due to fatty infiltration and hepatocellular disease. Avoid hepato-toxic. Check hepatitis profile. Monitor. -LFTs relatively stable. Profile pending urine //Leukocytosis with elevated lactic acid likely secondary to pancreatitis. Patient already on intravenous Zosyn. Check urinalysis. Monitor //Chronic medical conditions of atrial fibrillation on Xarelto and GERD. Continue outpatient medications as appropriate DVT prophylaxis with SCD and Xarelto if okay with GI Problem Qualifiers (1) Acute pancreatitis: Qualified Codes: K85.10 - Biliary acute pancreatitis without necrosis or infection Enzo Dodd MD Aug 07, 2017 17:02
[2017-08-08] VITALS: BP 111/60; PULSE 103; RESP 20; TEMP 98.2; O2SAT 94
[2017-08-08 05:15] LABS: ALBUMIN 2.3 GM/DL (3.4-5.0); AST (GOT) 20 U/L (15-37); BICARBONATE 30.5 MEQ/L (21.0-32.0); BLOOD UREA NITROGEN 12 MG/DL (7-18); CALCIUM 8.2 MG/DL (8.5-10.1); CHLORIDE 100 MEQ/L (98-107); CREATININE 0.95 MG/DL (0.60-1.30); GLOMERULAR FILTRATION RATE 80 ML/MIN (>89); GLUCOSE,RANDOM 173 MG/DL (74-106); SODIUM (NA) 137 MEQ/L (136-145)
[2017-08-08 05:19] LABS: ALKALINE PHOSPHATASE 135 U/L (45-117); ALT (GPT) 61 U/L (12-78); TOTAL BILIRUBIN ADULT 0.8 MG/DL (0.2-1.0); TOTAL PROTEIN 5.9 GM/DL (6.4-8.2)
[2017-08-08 08:00] VITALS: BP 108/61; PULSE 90; RESP 20; TEMP 98.6; O2SAT 98
[2017-08-08] MEDS: INSULIN ASPART SUPPLEMENTAL SCALE SQ SCH ×3 (08:00→17:00)
[2017-08-08] MEDS: DOCUSATE SODIUM 50 MG/SENNA 8.6 MG TAB PO SCH (09:00)
[2017-08-08] MEDS: SODIUM CHLORIDE 0.9% FLUSH 10 ML FLUSH IV FLUSH SCH (09:00)
[2017-08-08] MEDS: FAMOTIDINE 20 MG/2 ML VIAL IV PUSH SCH (09:27)
[2017-08-08] MEDS: RIVAROXABAN 10 MG TAB PO SCH (09:29)
[2017-08-08] MEDS: METOPROLOL TARTRATE 25 MG TAB PO SCH (09:29)
[2017-08-08] MEDS ORDERED: POTASSIUM CHLORIDE 20 MEQ CONTROLLED RELEASE TAB PO ONE (10:30)
[2017-08-08 12:00] VITALS: BP 117/71; PULSE 76; RESP 18; TEMP 99.2; O2SAT 92
--- NOTE | 2017-08-08 12:02 | HHI.GIFU ---
GI Follow-up Note Consult Follow-up Subjective: Patient laying in bed comfortably, no new complaints, tolerating diet well. no abdo pain labs reviewed Objective: PHYSICAL EXAMINATION: Vitals signs stable No fever HEENT: Pupils round and reactive to light; normocephalic; atraumatic; no jaundice. Throat is clear. NECK: Neck is supple, no JVD, no lymphadenopathy. CHEST: Chest is clear to auscultation and percussion. CARDIAC: Regular rate and rhythm with no murmur gallop or rubs. ABDOMEN: Soft, nondistended, nontender; no hepatosplenomegaly; bowel sounds are present in all four quadrants. EXTREMITIES: No clubbing, cyanosis, or edema. SKIN: Normal; no rash; no jaundice. ATMOSPHERIC PHYSICS PROFESSOR: No focal deficits; alert and oriented times three. Available Data (labs, X- Rays, Procedues) : reviewed ASSESSMENT/PLAN: 1. Acute panc due to gallstones plan: 1. Low fat diet advised 2. Recommend outpt follow up with dr Donato 3. advised on outpt debi eval. 4. all questions answered. 5. no objection to discharge from gi stand point. It was a pleasure seeing Loy Felder Jr. Thank you for this consult. Entered by: Eleuterio Cheng MD Aug 08, 2017 12:02
--- NOTE | 2017-08-08 12:32 | HHI.PR ---
Subjective Remarks Still having abdominal pain about 3 out of 10, he did have a bowel movement, and passing gas he is afebrile, lipase dropped from 545>>480 Afebrile 2-D echo has been done awaiting report LFT back to normal when advance diet and monitor, will discuss with GI possibly discharge if cleared by GI Objective Vitals Vital Signs Date Time Temp Pulse Resp B/P (MAP) Pulse Ox O2 Delivery O2 Flow Rate FiO2 08/08/17 12:00 99.2 76 18 117/71 (86) 92 08/08/17 08:00 98.6 90 20 108/61 (77) 98 08/08/17 00:00 94 Room Air 08/08/17 00:00 98.2 103 20 111/60 (77) 94 08/07/17 20:00 99.4 107 20 122/57 (78) 92 08/07/17 20:00 92 Room Air 08/07/17 17:25 92 21 08/07/17 16:00 98.8 96 20 121/65 (83) 92 08/07/17 15:46 Nasal Cannula 4.00 08/07/17 15:36 18 08/07/17 15:36 18 I/O 08/07/17 08/07/17 08/07/17 08/08/17 08/08/17 08/08/17 07:00 15:00 23:00 07:00 15:00 23:00 Intake Total 240 ml 240 ml 360 ml Output Total 350 ml 6000 ml 300 ml Balance -110 ml -5760 ml 60 ml Intake Oral 240 ml 240 ml 360 ml Output Urine Total 350 ml 6000 ml 300 ml # Voids 3 1 # Bowel Movements 0 0 Result Diagram: 08/07/17 0818 08/08/17 0410 Objective Remarks GENERAL: This is a well-nourished, well-developed patient, in no apparent distress. SKIN: No rashes, warm and dry HEAD: Atraumatic. Normocephalic. EYES: Pupils equal round and reactive. Extraocular motions intact. No scleral icterus. ENT: Nose without bleeding, or drainage, Airway patent. NECK: Trachea midline. Supple CARDIOVASCULAR: Regular rate and rhythm without murmurs, gallops, or rubs. RESPIRATORY: Increased breath sounds bibasilar GASTROINTESTINAL: Abdomen soft, non-tender, nondistended. Positive bowel sounds MUSCULOSKELETAL: Extremities without clubbing, cyanosis, or edema. Pedal pulses appreciated NEUROLOGICAL: Awake and alert. Moves all extremity. Normal speech.no focal neurological deficit A/P Problem List: (1) Acute pancreatitis ICD Code: K85.90 - Acute pancreatitis without necrosis or infection, unspecified Status: Acute Assessment and Plan This is a 67-year-old male who presents to the emergency department complaining of acute onset of moderate to severe constant upper abdominal discomfort like a bad cramp for 24 hours associated with nausea, vomiting and chills. No fever, UTI symptoms, constipation and diarrhea. He occasionally drinks alcohol but had some alcoholic drinks 24 hours prior to onset of symptoms. Lipase of 26,000 , total bilirubin of 2.9, AST 2010 and ALT 110. Gallbladder sonogram with questionable gallstones. 08/07: Monitor LFT, patient had lung edema overnight, he was given Lasix and stopped the fluid, check 2-D echo 08/08: LFT back to normal, lipase trending down as mentioned above, awaiting 2- D echo to assess on lower extremity edema, still having pain 3 out of 10, advancing diet, discharge once cleared by GI //Acute pancreatitis likely alcoholic suspect choledocholithiasis. Keep nothing by mouth with ice chips. Pain management with oxycodone and IV Dilaudid counseled regarding narcotics. He'll likely need MRCP but will defer to GI -Appreciate GI assistance. Continue IV fluids. //Diabetes mellitus newly diagnosed Hemoglobin A1c 8.4 he has 1 postprandial reading of 251 Start metformin 500 by mouth twice a day at discharge -insulin sliding scale. //Transaminitis with echogenic liver which may be due to fatty infiltration and hepatocellular disease. Avoid hepato-toxic. Check hepatitis profile. Monitor. -LFTs relatively stable. Profile pending urine //Leukocytosis with elevated lactic acid likely secondary to pancreatitis. Patient already on intravenous Zosyn. Check urinalysis. Monitor //Chronic medical conditions of atrial fibrillation on Xarelto and GERD. Continue outpatient medications as appropriate DVT prophylaxis with SCD and Xarelto if okay with GI Discharge Planning Once cleared by GI, 2-D echo pending Problem Qualifiers (1) Acute pancreatitis: Qualified Codes: K85.10 - Biliary acute pancreatitis without necrosis or infection Enzo Dodd MD Aug 08, 2017 12:32
[2017-08-08] MEDS ORDERED: PROT40TA PO (12:33)
--- NOTE | 2017-08-08 12:39 | HHI.DS ---
Discharge Summary Admission Date Aug 05, 2017 at 06:36 Discharge Date: Aug 08, 2017 Admitting Diagnosis acute pancreatitis (1) Acute pancreatitis ICD Code: K85.90 - Acute pancreatitis without necrosis or infection, unspecified Status: Acute Procedures EGD colonoscopy Brief History - From Admission This is a 67-year-old male with a history of atrial fibrillation on Xarelto and GERD. He presents to the emergency department complaining of acute onset of moderate to severe constant upper abdominal discomfort like a bad cramp for 24 hours associated with nausea, vomiting and chills. No fever, UTI symptoms, constipation and diarrhea. He occasionally drinks alcohol but had some alcoholic drinks 24 hours prior to onset of symptoms. Lipase of 26,000, total bilirubin of 2.9, AST 2010 and ALT 110. Gallbladder sonogram with questionable gallstones. At this time, he does not have any complaints he is requesting water. All other systems reviewed negative CBC/BMP: 08/07/17 0818 08/08/17 0410 Significant Findings Laboratory Tests Test 08/06/17 04:22 08/07/17 03:35 08/07/17 08:18 08/08/17 04:10 Neutrophils (%) (Auto) 87.8 % (16.0-70.0) 75.8 % (16.0-70.0) Lymphocytes (%) (Auto) 4.7 % (9.0-44.0) Lymphocytes # (Auto) 0.4 TH/MM3 (1.0-4.8) 0.8 TH/MM3 (1.0-4.8) Random Glucose 291 MG/DL (74-106) 238 MG/DL (74-106) 173 MG/DL (74-106) Albumin 3.0 GM/DL (3.4-5.0) 2.3 GM/DL (3.4-5.0) Calcium Level 8.1 MG/DL (8.5-10.1) 8.2 MG/DL (8.5-10.1) 8.2 MG/DL (8.5-10.1) Aspartate Amino Transf (AST/SGOT) 91 U/L (15-37) Alanine Aminotransferase (ALT/SGPT) 137 U/L (12-78) Total Bilirubin 2.0 MG/DL (0.2-1.0) Lipase 5458 U/L (73-393) 480 U/L (73-393) Urine Protein 30 mg/dL (NEG-TRACE) Urine Glucose (UA) 1000 mg/dL (NEG) Monocytes (%) (Auto) 9.0 % (0.0-8.0) Eosinophils (%) (Auto) 4.6 % (0.0-4.0) Sodium Level 133 MEQ/L (136-145) Potassium Level 3.4 MEQ/L (3.5-5.1) 3.3 MEQ/L (3.5-5.1) Estimat Glomerular Filtration Rate 69 ML/MIN (>89) 80 ML/MIN (>89) Hemoglobin A1c 8.4 % (4.3-6.0) Total Protein 5.9 GM/DL (6.4-8.2) Alkaline Phosphatase 135 U/L (45-117) PE at Discharge GENERAL: This is a well-nourished, well-developed patient, in no apparent distress. SKIN: No rashes, warm and dry HEAD: Atraumatic. Normocephalic. EYES: Pupils equal round and reactive. Extraocular motions intact. No scleral icterus. ENT: Nose without bleeding, or drainage, Airway patent. NECK: Trachea midline. Supple CARDIOVASCULAR: Regular rate and rhythm without murmurs, gallops, or rubs. RESPIRATORY: Increased breath sounds bibasilar GASTROINTESTINAL: Abdomen soft, non-tender, nondistended. Positive bowel sounds MUSCULOSKELETAL: Extremities without clubbing, cyanosis, or edema. Pedal pulses appreciated NEUROLOGICAL: Awake and alert. Moves all extremity. Normal speech.no focal neurological deficit Hospital Course 67 years old male admitted with acute actinic keratitis hyperglycemia transaminitis, GI consulted, andpo iv fluid and pain management provided, patient gradually improved symptomatic. Hemoglobin A1c was found to be 8.4, patient started on metformin 500 twice a day at discharge he will definitely need to follow up with his primary care physician he was advised extensively [id number] encounter performed with the patient on discharge day, as well as physical exam, summary of hospitalization course and postdischarge plan has been D/W the patient. D/W nurse D/W insurance case manager. Discharge medications reviewed and printed and signed, post discharge follow up visit with PCP and other specialist as well as Brief hospital course and discharge summary has been placed. Pt Condition on Discharge: Fair Discharge Disposition: Discharge Home Discharge Time: > 30 minutes Discharge Instructions DIET: Follow Instructions for: Heart Healthy Diet Activities you can perform: Weight Bearing as Isaias Follow up Referrals: Gastroenterology - 1 Week with Eleuterio Buckner MD New Medications: Blood Glucose Monitoring W/Device (Blood Glucose Monitoring W/Device) 1 Kit Kit KIT .ROUTE DIRECTED for Blood Sugar Management, #1 0 Refills Blood Glucose Test Strips (Blood Glucose Test Strips) Strips Strip EA .ROUTE DIRECTED for Blood Sugar Management, #1 0 Refills Metformin (Metformin) 500 Mg Tab 500 MG PO BIDPC for Blood Sugar Management, #60 TAB 0 Refills Pantoprazole (Protonix) 40 Mg Tab 40 MG PO DAILY for Reflux, #30 TAB 0 Refills Continued Medications: Metoprolol Tartrate (Metoprolol Tartrate) 25 Mg Tab 25 MG PO BID, #60 TAB 0 Refills Rivaroxaban (Xarelto) 10 Mg Tab 10 MG PO DAILY for Blood Clot Prevention, TAB 0 Refills Enzo Dodd MD Aug 08, 2017 12:39
[2017-08-08] MEDS ORDERED: METF500T PO (12:40)
[2017-08-08] MEDS ORDERED: BLOOD GLUCOSE T1 TES (12:43)
[2017-08-08] MEDS ORDERED: BLOOD GLUCOSE M1 KIT (12:43)
--- NOTE | 2017-08-08 17:00 | ECHRPT ---
Indication: LUNG EDEMA CONCLUSIONS The left ventricular systolic function is mildly reduced with an estimated ejection fraction in the range of 50- 55%. Trace mitral valve regurgitation. There is trace tricuspid valve regurgitation. BP: 111 / 60 HR: 103 Rhythm: Sinus MEASUREMENTS (Male / Female) Normal Values Technical Quality:Fair 2D ECHO LV Diastolic Diameter PLAX 4.9 cm 4.2 - 5.9 / 3.9 - 5.3 cm LV Systolic Diameter PLAX 4.0 cm IVS Diastolic Thickness 0.8 cm 0.6 - 1.0 / 0.6 - 0.9 cm LVPW Diastolic Thickness 0.8 cm 0.6 - 1.0 / 0.6 - 0.9 cm LV Relative Wall Thickness 0.3 RV Internal Dim ED PLAX 2.5 cm LVOT Diameter 2.0 cm Aortic Root Diameter 3.1 cm LA Systolic Diameter LX 3.4 cm 3.0 - 4.0 / 2.7 - 3.8 cm M-MODE AV Cusp Separation MM 2.2 cm DOPPLER AV Peak Velocity 116.0 cm/s AV Peak Gradient 5.4 mmHg AV Mean Gradient 3.0 mmHg AV Velocity Time Integral 20.0 cm LVOT Peak Velocity 71.4 cm/s LVOT Peak Gradient 2.0 mmHg LVOT Velocity Time Integral 11.8 cm LVOT Cardiac Index 1633.3 cm/minm AV Area Cont Eq vti 1.9 cm AV Area Cont Eq pk 1.9 cm Mitral E Point Velocity 100.0 cm/s Mitral A Point Velocity 42.0 cm/s Mitral E to A Ratio 2.4 LV E' Lateral Velocity 9.5 cm/s Mitral E to LV E' Lateral Ratio 10.6 LV E' Septal Velocity 10.7 cm/s Mitral E to LV E' Septal Ratio 9.3 TR Peak Velocity 354.0 cm/s TR Peak Gradient 50.1 mmHg Right Atrial Pressure 10.0 mmHg Pulmonary Artery Systolic Pressu 60.1 mmHg Right Ventricular Systolic Press 60.1 mmHg PV Peak Velocity 39.9 cm/s PV Peak Gradient 0.6 mmHg FINDINGS LEFT VENTRICLE Normal left ventricular size. Wall thickness is normal. The left ventricular systolic function is mildly reduced with an estimated ejection fraction in the range of 50- 55% RIGHT VENTRICLE Normal right ventricular size and systolic function. LEFT ATRIUM The left atrial size is mildly dilated. RIGHT ATRIUM The right atrial size is normal. ATRIAL SEPTUM Normal atrial septal thickness. AORTA The aortic root and proximal ascending aorta are normal in size on limited imaging. MITRAL VALVE Structurally normal mitral valve. No mitral valve stenosis. Trace mitral valve regurgitation. AORTIC VALVE Trileaflet aortic valve. No aortic valve stenosis or regurgitation. TRICUSPID VALVE Structurally normal tricuspid valve. No tricuspid valve stenosis. There is trace tricuspid valve regurgitation. The estimated pulmonary arterial pressure is 35 mmHg. PULMONARY VALVE No pulmonary valve regurgitation or stenosis. VESSELS The inferior vena cava is normal in size. PERICARDIUM No pericardial effusion. Zeb Woody DO (Electronically Signed) Final Date:08 August 2017 16:58
== END 2017-08-08 18:23 | disposition home or self-care (01) | DRG 439 ==
LOC: NEPC 02:46 → NEDA 06:36 → N07A 08:10
PROVIDERS: ADMIT Hospitalist; ATTEND Hospitalist
DX: K85.10 Biliary acute pancreatitis without necrosis or infection (principal); J81.1 Chronic pulmonary edema; I48.91 Unspecified atrial fibrillation; E11.65 Type 2 diabetes mellitus with hyperglycemia; K21.9 Gastro-esophageal reflux disease without esophagitis; I10 Essential (primary) hypertension; K80.20 Calculus of gallbladder without cholecystitis without obstruction; R94.5 Abnormal results of liver function studies; Z79.01 Long term (current) use of anticoagulants
CPT/HCPCS: 71010; 76705; 80048; 80053; 80074; 81001; 82948; 83036; 83605; 83690; 85025; 85610; 85730; 93306; 96361; 96365; 96375; J1170; J1200; J1815; J1940; J2175; J2405; J2543; J7030; J7121

== ENCOUNTER → 2017-12-04 | Day surgery (SDC) | payer OTHER ==
[~2017-12-04] VITALS: Ht 182.9 cm; Wt 101.6 kg
[~2017-12-04] MED LIST changes: -ACET325 PO; +ACETAMINOPHEN 1000 MG/100 ML 100 ML IV ONE; +ACETAMINOPHEN/HYDROcodone 325 MG/5 MG TAB PO PRN; +ALLO100T PO; -AMIO200 PO; +BUPIVACAINE/EPINEPHRINE 0.5% PF 30 ML VIAL ONE; +CHLORHEXIDINE GLUCONATE 2 % 1 PACK (2 CLOTHS) TOPICAL PRN; +DEXAMETHASONE SOD PHOS 4 MG/ML VIAL IV ONE; -DUONI NEB; -ECOT81TA2 PO; -FLUC100T41 PO; +GLYCOPYRROLATE 1 MG/5 ML SYRINGE IV PUSH ONE; -HYDR20VI3 IV PUSH; +KETOROLAC TROMETHAMINE 30 MG/ML (IVP) VIAL IV PUSH ONE; +LACTATED RINGER'S 1000 ML INJ 1,000 ML IV ONE; +LACTATED RINGER'S 1000 ML IV PRN; -LANSO30 NG; +LIDOCAINE HCL 1% PF 5 ML SYRINGE OTHER ONE; -METF500 PO; -METO10 PEG; +METOPROLOL TARTRATE 25 MG TAB PO PRN; +METRONIDAZOLE 500 MG/100 ML ISONTONIC SOLN IV SCH; +MIDAZOLAM HCL 2 MG/2 ML VIAL ONE; +MORPHINE SULFATE 8 MG/ML INJ IV PUSH PRN; +NALOXONE HCL 0.4 MG/ML AMP IV PUSH PRN; +NEOSTIGMINE 5 MG/5 ML SYRINGE IV PUSH ONE; +OMEP20TA93 PO; +ONDANSETRON HCL 4 MG/2 ML VIAL IV ONE; +ONDANSETRON HCL 4 MG/2 ML VIAL IV PUSH PRN; +PHENYLEPH/NS 1000 MCG/10 ML SYR IV ONE; +POVIDONE IODINE 5% (ANTISEPSIS KIT) 4 APPLICATIONS EACH NARE PRN; +PROPOFOL 200 MG/20 ML AMP IV ONE; +Post-op Orders (for Pharmacy) XX ONE; -RANI150UDC PO; +ROCURONIUM INJ 50 MG/5 ML SYRINGE IV PUSH ONE; -SIME40S PO; +SODIUM CHLORID 0.9% 500 ML IV PRN; -WARF2.5T40 PO; +XARE20TA PO; +ceFAZolin 2 GM/DEX PREMIX 50 ML IV SCH; +diphenhydrAMINE HCL 50 MG/ML VIAL ONE
[2017-12-04 08:13] LABS: AUTOMATED NEUTROPHIL # 4.6 TH/MM3 (1.8-7.7); BASOPHIL # 0.1 TH/MM3 (0-0.2); BASOPHIL % 0.7 % (0.0-2.0); EOSINOPHIL # 0.3 TH/MM3 (0-0.4); EOSINOPHIL % 3.3 % (0.0-4.0); HEMOGLOBIN 15.7 GM/DL (13.0-17.0); LYMPH % 29.6 % (9.0-44.0); LYMPHOCYTE # 2.3 TH/MM3 (1.0-4.8); MEAN CELL VOLUME 86.2 FL (80.0-100.0); MEAN CORPUSCULAR HEMOGLOBIN 29.5 PG (27.0-34.0); MEAN CORPUSCULAR HGB CONC 34.2 % (32.0-36.0); MEAN PLATELET VOLUME 8.3 FL (7.0-11.0); MONO % 7.6 % (0.0-8.0); MONOCYTE # 0.6 TH/MM3 (0-0.9); NEUT % 58.8 % (16.0-70.0); PLATELET COUNT 227 TH/MM3 (150-450); RED BLOOD COUNT 5.34 MIL/MM3 (4.50-5.90); RED CELL DISTRIBUTION WIDTH 12.8 % (11.6-17.2); WHITE BLOOD COUNT 7.8 TH/MM3 (4.0-11.0)
--- NOTE | 2017-12-04 08:46 | EKG ---
Date Performed: 12/04/2017 Time Performed: 08:12:15 PTAGE: 67 years EKG: ATRIAL FIBRILLATION WITH RAPID VENTRICULAR RESPONSE NONSPECIFIC ST & T-WAVE ABNORMALITY ABN ORMAL RHYTHM ECG PREVIOUS TRACING : 10/25/2015 06.39 DOCTOR: Maximo Steele Interpretating Date/Time 12/04/2017 08:44:56
--- NOTE | 2017-12-04 11:33 | MP ---
cc: Will Hyde MD DATE OF OPERATION: 12/04/2017 DATE OF PROCEDURE: 12/04/2017. PREOPERATIVE DIAGNOSIS: History of gallstone pancreatitis. POSTOPERATIVE DIAGNOSIS: History of gallstone pancreatitis. PROCEDURE PERFORMED: Laparoscopic cholecystectomy. SURGEON: Will Hyde MD ANESTHESIA: General endotracheal. COMPLICATIONS: None. ESTIMATED BLOOD LOSS: Minimal. INDICATIONS FOR PROCEDURE: Mr. Felder is a very pleasant 67-year-old gentleman who was critically ill several months ago with gallstone pancreatitis. He did well and subsequently was referred for consideration of elective cholecystectomy to prevent further episodes. The patient was noted to have no gallstones, but did have gallbladder sludge. His followup ultrasound demonstrated some possible debris in the common bile duct and a cholangiogram was to be considered if anatomically possible. Risks and benefits were reviewed with him in the office and he was agreeable. INTRAOPERATIVE FINDINGS: The patient had a fairly enlarged gallbladder that did not have any acute inflammatory change. It did have some chronic inflammatory change. The cystic duct segment was extremely short going right into the neck of the gallbladder and the common bile duct. Cholangiogram was therefore not technically possible due to the limited space on the cystic duct. Cystic duct was moderately enlarged, but clips were able to go completely across it. DETAILS OF PROCEDURE: The patient was identified, brought to the operating room, placed supine on the operating table. After adequate general endotracheal anesthesia was achieved, the abdomen was prepped and draped in standard surgical fashion. The supraumbilical space was anesthetized with 0.25% Marcaine. Supraumbilical incision was made. Dissection was carried down through subcutaneous tissue to midline fascia. Midline fascia was then incised sharply. A finger was then placed in the peritoneal cavity without difficulty. Blunt balloon trocar was inserted, and the abdomen was insufflated to 15 mmHg using CO2 gas. Next, two 5 mm trocars were placed in the right upper quadrant, after anesthetizing the skin and subcutaneous tissue with 0.25% Marcaine. Attention was directed to the right upper quadrant where the patient's gallbladder was identified. Gallbladder was noted to be moderately distended. Gallbladder was retracted cephalad. Attention was directed to the gallbladder neck. Cystic artery and cystic duct and cystic node were carefully dissected out. It should be noted the cystic duct was extremely short. It was seen going directly from the neck of the gallbladder, right into the common bile duct. Because it was very short and it barely had enough space for 3 clips to go across it, I did not perform a cholangiogram as I was worried there would not be enough remnant to adequately close it after making a small incision for the catheter. Therefore, we went ahead and dissected out as much as we could and placed 2 clips proximally and 1 clip distally. Clips were seen going completely across the cystic duct, even though it was slightly larger than normal. The cystic duct was then transected between the clips. No bile was spilled. Once we clipped the duct, we were able to easily see the artery. The artery was dissected out a little further, and then clipped twice proximally and then taken distally with the electrocautery Bovie. Gallbladder was then dissected out of the hepatic fossa using electrocautery Bovie. There was a mild inflammatory change noted along the posterior wall of the gallbladder, making the dissection fairly tedious as there was no defined plane between the gallbladder and the liver. All bleeding points were controlled with electrocautery Bovie. Gallbladder was then placed in Endopouch bag and brought through the supraumbilical port. We did have to needle decompress the gallbladder in order to get it out due to its large size and once we did this, we were able to easily pull it out through the umbilicus without having to enlarge the fascial incision. Gallbladder was inspected. No stones were evident. Clips were in place in the cystic duct stump and there was no evidence of leakage of bile. Gallbladder was sent to pathology. A cystic node was also included with the specimen. Now, attention was redirected back to the abdominal cavity. The liver bed was completely hemostatic. A small amount of blood was suctioned out of the abdominal cavity. The liver bed was again reinspected and there was no bleeding. Clips were inspected. There was no evidence of bleeding from the cystic artery and there was no evidence of leakage of bile from the cystic duct. Common bile duct was intact and undisturbed and not dissected. At this point, 0.25% Marcaine was injected in the operative field. All trocars were then removed under direct vision. Midline fascia was repaired with a [id number] 0 Vicryl x 2. Skin was closed with 4-0 Vicryl. The patient tolerated the procedure well, was awakened and brought to the recovery room in stable condition. Will Dee Hyde MD MWMonserrat/DARLENE , 11:12 AM , 11:32 AM
[2017-12-04 13:20] VITALS: BP 104/62; PULSE 67; RESP 20; TEMP 98.6; O2SAT 97
== END | disposition home or self-care (01) ==
LOC: HSDC 07:28
PROVIDERS: ATTEND Surgery Trauma Surgery
DX: K80.10 Calculus of gallbladder with chronic cholecystitis without obstruction (principal); K85.90 Acute pancreatitis without necrosis or infection, unspecified; I10 Essential (primary) hypertension; I48.91 Unspecified atrial fibrillation
CPT/HCPCS: 00790; 47562; 85025; 88304; 93005; J0131; J1100; J1200; J1885; J2250; J2370; J2405; J2710; J3010; J7120